=== PATIENT | female | born 1980 | race Caucasian/White ===

== ENCOUNTER 2017-05-04 17:14 | Emergency (ER) | payer MEDICAID ==
[2017-05-04] MEDS ORDERED: IBUPROFEN 600 MG TABLET PO ONE (18:14)
[2017-05-04] MEDS ORDERED: PEN G BENZ/PEN G PROCAINE 1,200,000 UNIT/2 ML ML IM ONE (18:56)
[2017-05-04] MEDS ORDERED: DEXAMETHASONE 10 MG/ML VIAL ONE (18:56)
--- NOTE | 2017-05-04 19:07 | ER NURSING DOCUMENTATION ---
Nurse's Notes [facility] Name:Dena Manning Age:36 yrs Sex:Female :1980 Arrival Date:05/04/2017 Time:17:14 BedD-1 Private MD: Diagnosis:Strep Sore Throat Presentation: 05/04 17:25 Acuity: RANDI 4 ms1 17:38 Presenting complaint: Patient states: Pt reports fever, rash and sore throat for 24 mk2 hours. Transition of care: Home. Care prior to arrival: None. 17:38 Method Of Arrival: Walk In 2 Triage Assessment: 17:45 General: Appears in no apparent distress, Behavior is cooperative, pleasant. Pain: mk2 Complains of pain in bilateral throat. EENT: Throat has patchy exudate. Derm: Rash noted that is flat red ,non patterned, non itchy, non draining, red rash throughout body. Historical: - Allergies: No known drug Allergies; - Home Meds: 1. None - PMHx: None; - PSHx: None; - Tetanus: < 10 years. - Ebola Screening: : Patient positive for the following Ebola Virus Disease associated symptoms: Fever greater than or equal to 101.5 degrees Fahrenheit. - Immunization history: Flu Vaccine < 1 year. - Social history: Smoking status: Patient states was never smoker of tobacco. Patient/guardian denies using alcohol, street drugs. Screenin:51 Infectious Disease Risk None. Abuse screen: Denies threats or abuse. Nutritional mk2 screening: No deficits noted. Assessment: 17:51 See Triage Assessment done by same RN. mk2 Vital Signs: 17:32 BP 122 / 72; Pulse 112; Resp 16; Temp 101.7; Pulse Ox 97% ; Weight 61.23 kg; Height 5 jt ft. 3 in. (160.02 cm); Pain 7/10; 19:05 Pulse 102; Temp 99.3(O); Pulse Ox 99% on R/A; mk2 17:32 Body Mass Index 23.91 (61.23 kg, 160.02 cm) jt ED Course: 17:21 Patient arrived in ED. ama 17:25 Marya Christie RN is Primary Nurse. sc1 17:27 Triage completed. sc1 17:33 Mark Faith MD is Attending Physician. ms 17:38 Primary Nurse role handed off by Marya Christie RN mk2 17:38 Katie Smart, RN is Primary Nurse. mk2 17:51 Strep culture sent to lab. mk2 17:51 Arm band placed on Bed in low position Call Light in Reach Gowned HOB Elevated Side mk2 rails up x1. 18:17 Valuables Remains with patient. PO fluids given. mk2 Administered Medications: 18:09 Drug: Ibuprofen 600 mg; Route: PO; mk2 18:17 Follow up: Response: No adverse reaction mk2 18:59 Drug: Bicillin L-A 1.2 million units; Route: IM; Site: left gluteus; mk2 19:05 Follow up: Response: No adverse reaction mk2 18:59 Drug: Decadron 10 mg; Route: IM; Site: right gluteus; mk2 19:05 Follow up: Response: No adverse reaction mk2 Outcome: 18:23 Discharge ordered by . ms 19:06 Patient left the ED. mk2 Signatures: Marya Christie RN RN ms1 Mark Faith MD MD sc Kruger, Meg, RN RN mk2 Guero Edgar, Oly Macias
--- NOTE | 2017-05-04 19:07 | ER PHYSICIAN DOCUMENTATION ---
Physician Documentation [facility] Name:Dena Manning Age:36 yrs Sex:Female :1980 Arrival Date:05/04/2017 Time:17:14 BedD-1 Private MD: Mark Elliott Disposition: 05/04/17 18:23 Discharged to Home/Self Care. Impression: Strep Sore Throat. - Condition is Good. - Discharge Instructions: PHARYNGITIS, Strep (Confirmed). - Medical Reconciliation form form. - Follow up: Private Physician; When: As needed; Reason: Worsening of condition. - Problem is new. - Symptoms are unchanged. HPI: 05/04 18:12 This 36 yrs old Female presents to ER via Walk In with complaints of Fever, sc Sore Throat. 18:12 The patient reports fever, not measured (subjective). Onset: The symptom(s)/episode sc began/occurred yesterday. Modifying factors: The patient has had contact with sick daughter. Associated signs and symptoms: Pertinent positives: skin rash, sore throat. Severity of symptoms: At their worst the symptoms were moderate. Historical: - Allergies: No known drug Allergies; - Home Meds: 1. None - PMHx: None; - PSHx: None; - Tetanus: < 10 years. - Ebola Screening: : Patient positive for the following Ebola Virus Disease associated symptoms: Fever greater than or equal to 101.5 degrees Fahrenheit. - Immunization history: Flu Vaccine < 1 year. - Social history: Smoking status: Patient states was never smoker of tobacco. Patient/guardian denies using alcohol, street drugs. ROS: 18:13 Eyes: Negative for injury, pain, redness, and discharge. sc Neck: Negative for injury, pain, and swelling. Cardiovascular: Negative for chest pain, palpitations, and edema. Respiratory: Negative for shortness of breath, cough, wheezing, and pleuritic chest pain. Abdomen/GI: Negative for abdominal pain, nausea, vomiting, diarrhea, and constipation. Back: Negative for injury and pain. MS/Extremity: Negative for injury and deformity. Neuro: Negative for headache, weakness, numbness, tingling, and seizure. 18:13 Psych: Negative for depression, anxiety, suicide ideation, homicidal ideation, and sc hallucinations. 18:13 Constitutional: Positive for fever. 18:13 ENT: Positive for sore throat. 18:13 Skin: Positive for rash. Exam: Head/Face: Normocephalic, atraumatic. Eyes: Pupils equal round and reactive to light, extra-ocular motions intact. Lids and lashes normal. Conjunctiva and sclera are non-icteric and not injected. Cornea within normal limits. Periorbital areas with no swelling, redness, or edema. Neck: Trachea midline, no thyromegaly or masses palpated, and no cervical lymphadenopathy. Supple, full range of motion without nuchal rigidity, or vertebral point tenderness. No meningismus. Chest/axilla: Normal chest wall appearance and motion. Nontender with no deformity. No lesions are appreciated. Cardiovascular: Regular rate and rhythm with a normal S1 and S2. No gallops, murmurs, or rubs. Normal PMI, no JVD. No pulse deficits. Respiratory: Lungs have equal breath sounds bilaterally, clear to auscultation and percussion. No rales, rhonchi or wheezes noted. No increased work of breathing, no retractions or nasal flaring. Abdomen/GI: Soft, non-tender, with normal bowel sounds. No distension or tympany. No guarding or rebound. No evidence of tenderness throughout. 18:13 Back: No spinal tenderness. No costovertebral tenderness. Full range of motion. sc 18:13 Constitutional: The patient appears alert, awake. 18:13 ENT: Posterior pharynx: erythema, exudate, that is mild. 18:13 Skin: rash a mild rash is noted, rash can be described as erythematous, papular. Vital Signs: 17:32 BP 122 / 72; Pulse 112; Resp 16; Temp 101.7; Pulse Ox 97% ; Weight 61.23 kg; Height 5 jt ft. 3 in. (160.02 cm); Pain 7/10; 19:05 Pulse 102; Temp 99.3(O); Pulse Ox 99% on R/A; mk2 17:32 Body Mass Index 23.91 (61.23 kg, 160.02 cm) jt MDM: 17:33 Patient medically screened. sc 18:14 Differential diagnosis: viral Infection, bacterial infection. Data reviewed: vital sc signs, nurses notes, lab test result(s), and as a result, I will continue to observe the patient. Counseling: I had a detailed discussion with the patient and/or guardian regarding: the historical points, exam findings, and any diagnostic results supporting the discharge/admit diagnosis, lab results, the need for outpatient follow up, with the patient's primary care provider. 05/04 18:19 Order name: RAPID STREP SCRN CUL IF NEG; Complete Time: 18:23 EDMS 05/04 18: Interpretation: Abnormal. sc Dispensed Medications: 18:09 Drug: Ibuprofen 600 mg; Route: PO; mk2 18:17 Follow up: Response: No adverse reaction mk2 18:59 Drug: Bicillin L-A 1.2 million units; Route: IM; Site: left gluteus; mk2 19:05 Follow up: Response: No adverse reaction mk2 18:59 Drug: Decadron 10 mg; Route: IM; Site: right gluteus; mk2 19:05 Follow up: Response: No adverse reaction mk2 Signatures: Mark Faith MD MD sc Kruger, Meg RN RN mk2
== END 2017-05-04 19:07 | disposition home or self-care (01) ==
LOC: ER 17:14
DX: J02.0 Streptococcal pharyngitis (principal); R50.9 Fever, unspecified; R21 Rash and other nonspecific skin eruption
CPT/HCPCS: 86403; 96372; 99283; J0558; J1100